=== PATIENT | male | born 1965 | race Caucasian/White ===

== ENCOUNTER → 2016-04-29 | Day surgery (SDC) | payer OTHER ==
[~2016-04-29] VITALS: Ht 170.2 cm; Wt 74.4 kg
[~2016-04-29] MED LIST: 0.9% Sodium Chloride 1,000 ML IV SCH; LISI-567 PO; Sodium Chloride LOK Flush 10 mL Syringe IV PRN; fentaNYL-PF 50 mCg/mL 2 mL Inj IVPUSH PRN
[2016-04-29 10:23] VITALS: BP 130/82; PULSE 66; RESP 14; O2SAT 98
[2016-04-29 11:12] VITALS: BP 127/88; PULSE 59; RESP 16; O2SAT 96
--- NOTE | 2016-04-29 21:56 | ENDO ---
[address] [address] ENDOSCOPY PROCEDURE PATIENT: SALVADOR RAY : 1965 MR#: [id number] ADMIT: 04/29/2016 JOB ID: [id number] DATE: 04/29/2016 PRIMARY PROVIDER: Cooper eJsus MD PROCEDURE: Colonoscopy. INDICATIONS: A 50-year-old male who reports for colon cancer screening. EQUIPMENT: PCF H 180 AL. SEDATION: 4 mg Versed and 100 mcg fentanyl. COMPLICATIONS: None identified. BOWEL PREPARATION: Excellent. PROCEDURE INFORMATION: After the risks and benefits were explained, written and verbal informed consent was obtained. The patient was brought into the endoscopy suite and placed into the left lateral decubitus position. Sedation was achieved as above. A digital rectal examination accomplished. No significant pathology appreciated. The scope was introduced into the rectum and advanced under direct visualization to the level of the cecum, as identified by the appendiceal orifice and ileocecal valve. The scope was slowly withdrawn to carefully examine the mucosa for any defects or lesions. Retroflexed views were accomplished in the rectum. The colon was decompressed. The scope removed the patient who tolerated the procedure well. FINDINGS: No significant polyps, mass lesions, or inflammatory features identified throughout including retroflexed views from within the rectum. ENDOSCOPIC DIAGNOSIS: Visually unremarkable colonoscopy to cecum. RECOMMENDATIONS: Repeat colonoscopy 10 years' time, sooner should symptoms warrant.
== END | disposition home or self-care (01) ==
LOC: END 00:27
PROVIDERS: ATTEND Internal Medicine Gastroenterology
DX: Z12.11 Encounter for screening for malignant neoplasm of colon (principal); I10 Essential (primary) hypertension
CPT/HCPCS: G0121; J2250; J3010; J7030